=== PATIENT | male | born 1945 | race Caucasian/White ===

== ENCOUNTER 2023-04-14 16:48 | Emergency (ER) | payer OTHER ==
[2023-04-14 17:19] VITALS: BP 144/73; O2SAT 96
[2023-04-14] MEDS ORDERED: DOXEPIN 10 MG CAPSULE PO STA (17:28)
[2023-04-14] MEDS ORDERED: CHERRY SYRUP 10 ML UDC PO ONE (17:28)
[2023-04-14] MEDS ORDERED: DEXAMETHASONE 10 MG/ML VIAL PO STA (17:28)
--- NOTE | 2023-04-14 17:30 | ED Physician Documentation ---
PD HPI SKIN - Stated complaint Stated Complaint: BEE STING, R HAND SWELLING - Chief complaint Chief Complaint: Allergic Rx - History obtained from History obtained from: Patient (It a wasp into the right hand now with significant redness and swelling and itching of the right hand and distal forearm. No throat swelling, nausea, shortness of breath.) PD PAST MEDICAL HISTORY - Present Medications Home Medications: Ambulatory Orders Medication Instructions Recorded Confirmed Doxepin [SINEquan] 10 mg PO TID PRN #20 cap 04/14/23 predniSONE [Deltasone] 60 mg PO DAILY 5 Days #15 tablet 04/14/23 - Allergies Allergies/Adverse Reactions: Allergies Allergy/AdvReac Type Severity Reaction Status Date / Time No Known Drug Allergies Allergy Verified 04/14/23 16:59 PD ED PE NORMAL - Vitals Vital signs reviewed: Yes - General General: Alert and oriented X 3, No acute distress - Extremities Extremities: Other (The right hand is quite swollen and inflamed with a little bit of inflammation tracking proximal to the wrist.) - Neuro Neuro: Alert and oriented X 3, Normal speech Results - Vitals Vitals: Vital Signs - 24 hr 04/14/23 16:59 Temperature 37.1 C Heart Rate 84 Respiratory 96 H Rate Blood Pressure 144/73 H O2 Saturation 96 Oxygen O2 Source Room air PD Medical Decision Making - ED course ED course: 78-year-old gentleman with localized bee sting reaction. Administered steroids and doxepin. No evidence of infection. No evidence of anaphylaxis. Departure - Departure Disposition: 01 Home, Self Care Clinical Impression: Local reaction to hymenoptera sting Condition: Good Record reviewed to determine appropriate education?: Yes Instructions: ED Bite Sting Insect Local Allergic React Prescriptions: predniSONE [Deltasone] 60 mg PO DAILY 5 Days #15 tablet Doxepin [SINEquan] 10 mg PO TID PRN #20 cap PRN Reason: Itching Comments: You were seen today for a localized reaction to a hymenoptera sting. You received a oral steroid and doxepin. The steroids for the inflammation and the doxepin for itching. Return if worsening. Avoid bee stings and wasp stings going forward.
== END 2023-04-14 17:40 | disposition home or self-care (01) ==
LOC: ED 16:48
DX: T63.441A Toxic effect of venom of bees, accidental (unintentional), initial encounter (principal)
CPT/HCPCS: 99282; 99283; A9270

== ENCOUNTER 2024-03-02 11:43 | Emergency (ER) | payer OTHER ==
[2024-03-02 12:28] LABS: BASOPHILS % (AUTO) 0.7 %; EOSINOPHILS # (AUTO) 0.1 10^3/uL (0.0-0.7); HCT - HEMATOCRIT 45.5 % (42.0-52.0); HGB - HEMOGLOBIN 15.8 g/dL (14.0-18.0); LYMPHOCYTES # (AUTO) 1.6 10^3/uL (1.5-3.5); LYMPHOCYTES % (AUTO) 27.8 %; MEAN CORPUSCULAR HEMOGLOBIN 32.1 pg (27.0-31.0); MEAN CORPUSCULAR HGB CONC 34.7 g/dL (32.0-36.0); MEAN CORPUSCULAR VOLUME 92.5 fL (80.0-94.0); MONOCYTES # (AUTO) 0.6 10^3/uL (0.0-1.0); MONOCYTES % (AUTO) 9.5 %; NEUTROPHILS # (AUTO) 3.5 10^3/uL (1.5-6.6); NEUTROPHILS % (AUTO) 59.7 %; PLT - PLATELET COUNT 221 10^3/uL (130-450); RED BLOOD COUNT 4.92 10^6/uL (4.70-6.10); RED CELL DISTRIBUTION WIDTH 13.8 % (12.0-15.0); WHITE BLOOD COUNT 5.9 x10^3/uL (4.8-10.8)
--- NOTE | 2024-03-02 12:29 | ED Physician Documentation ---
PD HPI CHEST PAIN - Stated complaint Stated Complaint: SOA,CHEST PX - Chief complaint Chief Complaint: Cardiac - History obtained from History obtained from: Patient - History of Present Illness Timing - duration: Days (3) Timing - details: Intermittant Pain level max: 4 Pain level now: 0 Quality: Pressure, Tightness Location: Substernal Radiation: No: Jaw, Neck, Back, Abdominal, Left upper extremity, Right upper extremity Associated symptoms: Shortness of air (mild). No: Diaphoresis, Nausea, Vomiting, Feeling faint / dizzy, General Weakness, Palpitations, Cough - Additional information Additional information: Patient is a 78-year-old male who states he does not have any history of cardiac disease. He states over the past 3 days he has had several episodes of substernal chest pain that seem to last for about 15 to 20 minutes at a time. Nonradiating. Does not really seem to change with anything. He states he felt like walking around a few days ago made it better. He states that today the cold air while driving seem to help. He is not having pain currently. He states he has a history of hypertension, takes losartan, amlodipine, hydrochlorothiazide. He states that he started on buspirone about a week ago, states that he thought that the pain may have been secondary to that, therefore he stopped that medication. Review of Systems Constitutional: denies: Fever, Chills Respiratory: denies: Cough GI: denies: Vomiting, Diarrhea Skin: denies: Rash Musculoskeletal: denies: Neck pain, Back pain Neurologic: denies: Headache PD PAST MEDICAL HISTORY - Past Medical History Past Medical History: Yes Cardiovascular: Hypertension - Past Surgical History Past Surgical History: No - Present Medications Home Medications: Ambulatory Orders Medication Instructions Recorded Confirmed Amlodipine Besylate [Norvasc] 10 mg DAILY 03/02/24 03/02/24 Buspirone HCl 5 mg DAILY 03/02/24 03/02/24 Losartan [Cozaar] 100 mg DAILY 03/02/24 03/02/24 Meloxicam 15 mg DAILY 03/02/24 03/02/24 hydroCHLOROthiazide [Hydrodiuril] 25 mg DAILY 03/02/24 03/02/24 - Allergies Allergies/Adverse Reactions: Allergies Allergy/AdvReac Type Severity Reaction Status Date / Time lisinopril Allergy Unknown Verified 03/02/24 12:16 - Social History Does the pt smoke?: No Smoking Status: Never smoker Does the pt drink ETOH?: No - Immunizations Immunizations are current?: Yes PD ED PE NORMAL - Vitals Vital signs reviewed: Yes - General General: Alert and oriented X 3, No acute distress - HEENT HEENT: PERRL, Moist mucous membranes - Neck Neck: Supple, no meningeal sign - Cardiac Cardiac: RRR, Strong equal pulses - Respiratory Respiratory: No respiratory distress, Clear bilaterally - Abdomen Abdomen: Soft, Non tender, Non distended - Derm Derm: Warm and dry - Extremities Extremities: No edema, No calf tenderness / cord - Neuro Neuro: Alert and oriented X 3 - Psych Psych: Normal mood, Normal affect Results - Vitals Vitals: Vital Signs - 24 hr 03/02/24 03/02/24 03/02/24 11:55 13:59 15:00 Temperature 36.7 C Heart Rate 78 79 75 Respiratory 16 14 19 Rate Blood Pressure 158/71 H 148/78 H 168/78 H O2 Saturation 100 100 97 03/02/24 03/02/24 17:00 18:00 Temperature Heart Rate 77 75 Respiratory 18 17 Rate Blood Pressure 159/92 H 169/100 H O2 Saturation 98 99 Oxygen O2 Source Room air - EKG (time done) 1203 EKG releavant findings:: EKG personally interpreted by author of this note. Relevant findings are: Rate: Rate (enter#) (73) Rhythm: NSR [place]: Normal Intervals: Normal DC QRS: Normal Ischemia: Normal ST segments - Labs Labs: Laboratory Tests 03/02/24 03/02/24 03/02/24 12:20 12:20 14:33 WBC 5.9 RBC 4.92 Hgb 15.8 Hct 45.5 MCV 92.5 MCH 32.1 H MCHC 34.7 RDW 13.8 Plt Count 221 MPV 10.0 Neut # (Auto) 3.5 Lymph # (Auto) 1.6 [place] # (Auto) 0.6 Eos # (Auto) 0.1 Baso # (Auto) 0.0 Absolute Nucleated RBC 0.00 Nucleated RBC % 0.0 Sodium 138 Potassium 3.5 Chloride 103 Carbon Dioxide 24 Anion Gap 11.0 BUN 26 H Creatinine 1.2 Estimated GFR (MDRD) 59 L Glucose 157 H Calcium 9.7 Total Bilirubin 0.7 AST 24 ALT 40 Alkaline Phosphatase 50 Troponin I High Sens 91.0 H* 315.0 H* Total Protein 7.7 Albumin 4.4 Globulin 3.3 Albumin/Globulin Ratio 1.3 Lipase 22 - Rads (name of study) cxr Relevant Findings:: Final report received, See rad report CT angio chest Relevant Findings:: Final report received, See rad report PD Medical Decision Making - ED course Complexity details: reviewed results, re-evaluated patient, considered differential, d/w patient ED course: Patient is a 78-year-old male with history concerning for unstable angina versus accelerating angina. His high sensitivity troponin initially came back at 90, repeat was over 300. Lovenox was given 1 mg/kg subcu. He is asymptomatic in the emergency department. Patient will need to be transferred for NSTEMI. A CT pulmonary angiogram was performed to exclude PE. This does show three- vessel coronary artery disease as well. Patient will be signed out to the oncoming emergency department physician awaiting transfer for higher level of care. Departure - Departure Disposition: 02 Transfer Acute Care Hosp Clinical Impression: NSTEMI (non-ST elevated myocardial infarction), Unstable angina Condition: Stable Forms: PCP List
--- NOTE | 2024-03-02 12:46 | XRAY Report ---
PROCEDURE: Chest 1V INDICATIONS: Chest pain TECHNIQUE: One view of the chest was acquired. COMPARISON: None. FINDINGS: Surgical changes and devices: None. Lungs and pleura: No pleural effusions or pneumothorax. Lungs are clear. Mediastinum: Mediastinal contours appear normal. Heart size is normal. Bones and chest wall: No suspicious bony lesions. Overlying soft tissues appear unremarkable. IMPRESSION: No acute cardiopulmonary process. Reviewed by: Jose Francisco Aguilar MD on 03/02/2024 11:45 AM ZAY Approved by: Jose Francisco Aguilar MD on 03/02/2024 11:45 AM AKDT Station ID: [id number]
[2024-03-02 12:50] LABS: ALBUMIN 4.4 g/dL (3.2-5.5); ALBUMIN/GLOBULIN RATIO 1.3 (1.0-2.2); BILIRUBIN,TOTAL 0.7 mg/dL (0.2-1.0); CALCIUM 9.7 mg/dL (8.5-10.3); CREATININE 1.2 mg/dL (0.6-1.3); POTASSIUM 3.5 mmol/L (3.5-4.5); TOTAL PROTEIN 7.7 g/dL (6.4-8.9)
[2024-03-02] MEDS: ASPIRIN CHEW 81 MG TABLET PO STA (13:08)
[2024-03-02] MEDS ORDERED: iohexoL-300 100 ML VIAL ONE (13:38)
[2024-03-02] MEDS: iohexoL-300 100 ML VIAL IVP ONE (13:55)
--- NOTE | 2024-03-02 14:09 | CT Report ---
PROCEDURE: Angio Chest INDICATIONS: chest pain CONTRAST: 80ml [id number] TECHNIQUE: After the administration of intravenous contrast, 2 mm axial images were acquired from the pulmonary apices to the posterior costophrenic angles during the arterial phase. In addition, 1 mm lung kernel and 5 mm soft tissue kernel reconstructions were performed. 3-dimensional coronal oblique maximum int ensity projection (MIP) reformats, 8 mm axial MIP, and 5 mm coronal and sagittal MPR reformats were t hen performed through the thorax. For radiation dose reduction, the following was used: automated exp osure control, adjustment of mA and/or kV according to patient size. COMPARISON: None. FINDINGS: Image quality: Excellent. Large vessels: No filling defects within the opacified pulmonary arteries, accounting for motion and contrast timing. No evidence of acute aortic syndrome or aortic aneurysm. Lungs and pleura: No consolidation. No pleural effusions. No pneumothorax. No suspicious pulmonary n odules which require follow up. Azygos lobe. Mediastinum: Heart size is normal. No pericardial effusion. No large vessel abnormality. No mediastin al adenopathy by size criteria. Small hiatal hernia. Three-vessel coronary artery calcifications. Chest wall and lower neck: Thyroid is unremarkable. No axillary or supraclavicular adenopathy by size . Bones: No aggressive osseous abnormality. Upper Abdomen: Unremarkable. IMPRESSION: No pulmonary embolus. Three-vessel coronary artery calcifications. Small hiatal hernia. Reviewed by: Jose Francisco Aguilar MD on 03/02/2024 1:08 PM ZAY Approved by: Jose Francisco Aguilar MD on 03/02/2024 1:08 PM AKDT Station ID: [id number]
[2024-03-02] MEDS: ENOXAPARIN 100 MG/ML SYRINGE SUBQ STA (15:22)
[2024-03-03 06:27] LABS: BASOPHILS % (AUTO) 0.6 %; EOSINOPHILS # (AUTO) 0.2 10^3/uL (0.0-0.7); EOSINOPHILS % (AUTO) 2.6 %; HCT - HEMATOCRIT 44.1 % (42.0-52.0); HGB - HEMOGLOBIN 14.9 g/dL (14.0-18.0); LYMPHOCYTES # (AUTO) 1.8 10^3/uL (1.5-3.5); LYMPHOCYTES % (AUTO) 29.3 %; MEAN CORPUSCULAR HEMOGLOBIN 31.6 pg (27.0-31.0); MEAN CORPUSCULAR HGB CONC 33.8 g/dL (32.0-36.0); MEAN CORPUSCULAR VOLUME 93.4 fL (80.0-94.0); MEAN PLATELET VOLUME 10.2 fL (7.4-11.4); MONOCYTES # (AUTO) 0.8 10^3/uL (0.0-1.0); MONOCYTES % (AUTO) 12.1 %; NEUTROPHILS # (AUTO) 3.4 10^3/uL (1.5-6.6); NEUTROPHILS % (AUTO) 55.1 %; PLT - PLATELET COUNT 204 10^3/uL (130-450); RED BLOOD COUNT 4.72 10^6/uL (4.70-6.10); RED CELL DISTRIBUTION WIDTH 13.9 % (12.0-15.0); WHITE BLOOD COUNT 6.2 x10^3/uL (4.8-10.8)
[2024-03-03 06:45] LABS: ALBUMIN 4.1 g/dL (3.2-5.5); ALBUMIN/GLOBULIN RATIO 1.4 (1.0-2.2); BILIRUBIN,TOTAL 0.6 mg/dL (0.2-1.0); CALCIUM 9.2 mg/dL (8.5-10.3); CREATININE 1.2 mg/dL (0.6-1.3); POTASSIUM 3.4 mmol/L (3.5-4.5)
[2024-03-03 06:52] LABS: TROPONIN I HIGH SENSITIVITY 5023.7 ng/L (2.3-19.7)
[2024-03-03] MEDS: ENOXAPARIN 100 MG/ML SYRINGE SUBQ STA (08:09)
--- NOTE | 2024-03-03 11:31 | ED Physician Documentation ---
ED Addendum - Addendum Addendum: 03/03/24 11:31 Patient continues to board in the emergency department awaiting transfer for NSTEMI. Troponin up to 5000 today. Lovenox given. 03/03/24 13:22 Second troponin is downtrending to 3000. Cardiac echo ordered. Continuing to look for placement with [facility].
[2024-03-03] MEDS ORDERED: ACETAMINOPHEN 500 MG TABLET PO PRN (14:39)
[2024-03-03] MEDS ORDERED: ONDANSETRON 4 MG/2 ML VIAL IVP PRN (14:39)
--- NOTE | 2024-03-03 16:57 | ED Physician Documentation ---
ED Addendum - Addendum Addendum: 03/03/24 16:[address] Coates, cardiology at [facility] at this time who agrees with transfer and defers to the hospitalist service there for admission. Waiting for callback from them. They do have beds. 03/03/24 17:30 Accepted at this time by Carine Green to the hospitalist service at [facility]. Disposition: Transferred to [facility] for cardiac care Condition: Stable Diagnosis #1 non-STEMI
[2024-03-03] MEDS: ATORVASTATIN 40 MG TABLET PO SCH (20:45)
[2024-03-03] MEDS: ENOXAPARIN 100 MG/ML SYRINGE SUBQ SCH (20:46)
[2024-03-03 21:27] VITALS: BP 148/72; O2SAT 97
[2024-03-03] MEDS ORDERED: NITROGLYCERIN 2% PASTE TOP ONE (21:30)
[2024-03-03] MEDS: NITROGLYCERIN 2% PASTE TOP STA (21:33)
[2024-03-04] MEDS ORDERED: PANTOPRAZOLE 40 MG TABLET PO SCH (07:00)
[2024-03-04] MEDS ORDERED: ASPIRIN CHEW 81 MG TABLET PO SCH (09:00)
== END 2024-03-03 21:35 | disposition short-term general hospital (02) ==
LOC: ED 11:43
DX: I21.4 Non-ST elevation (NSTEMI) myocardial infarction (principal); I20.0 Unstable angina; I10 Essential (primary) hypertension
CPT/HCPCS: 36415; 71045; 71275; 80053; 83690; 84484; 85025; 93005; 93307; 96372; 96374; 96376; 99285; A9270; J1650; Q9967